=== PATIENT | female | born 2000 | race African-American/Black ===

== ENCOUNTER 2024-01-01 08:53 | Emergency (ER) | payer OTHER ==
[~2024-01-01] VITALS: Ht 154.9 cm; Wt 63.5 kg
[2024-01-01 09:06] VITALS: BP 120/61; TEMP 97.8; O2SAT 100
== END 2024-01-01 09:20 | disposition left against medical advice (07) ==
LOC: ER 08:57
DX: Z00.00 Encounter for general adult medical examination without abnormal findings (principal); Z53.21 Procedure and treatment not carried out due to patient leaving prior to being seen by health care provider